=== PATIENT | male | born 1980 | race African-American/Black ===

== ENCOUNTER 2022-08-25 02:46 | Inpatient (IN) | payer SELFPAY ==
[~2022-08-25] VITALS: Ht 182.9 cm; Wt 90.8 kg
[2022-08-25 06:02] LABS: HEMOGLOBIN. 8.7 g/dL (14.0-18.0); MEAN CORPUSCULAR HEMOGLOBIN 29.7 pg (28.0-32.0); MEAN CORPUSCULAR VOLUME 89.3 fL (80.0-94.0); MEAN PLATELET VOLUME 6.9 fl (7.4-10.4); PLATELET 456 x1000/uL (130-400); RED BLOOD CELL COUNT 2.92 mill/uL (4.7-6.1); RED CELL DISTRIBUTION WIDTH 14.5 % (11.6-14.6)
[2022-08-25 06:08] LABS: CHLORIDE 98 mEq/L (98-107)
[2022-08-25 06:18] LABS: ETHANOL BLOOD < 10 mg/dL
[2022-08-25 08:04] LABS: PLATELET ESTIMATE INCREASED
[2022-08-25] MEDS: AMPICILLIN SOD/SULBACTAM NA 3 G in SODIUM CHLORIDE 0.9% 100 ML IV SCH ×2 (08:30→14:37)
[2022-08-25] MEDS ORDERED: ONDANSETRON HCL 4MG/2ML INJ IV PRN (12:45)
[2022-08-25] MEDS ORDERED: CLONIDINE 0.1MG TABLET PO PRN (12:45)
[2022-08-25] MEDS: SODIUM CHLORIDE 0.9% 1,000 ML IV SCH ×2 (12:45→23:01)
[2022-08-25] MEDS ORDERED: ACETAMINOPHEN 325MG TABLET PO PRN (12:45)
[2022-08-25] MEDS: ENOXAPARIN 40MG/0.4ML SYR SUBCUT SCH (14:43)
[2022-08-25 16:00] VITALS: BP 132/74
[2022-08-25 16:56] VITALS: BP 136/74
[2022-08-25] MEDS ORDERED: VANCOMYCIN 1,750 MG in DEXT 5% WATER 500 ML IV SCH (18:00)
[2022-08-26] VITALS: BP 138/64
[2022-08-26] MEDS: VANCOMYCIN 1250MG in DEXTROSE 5% WATER 250ML IV SCH ×3 (03:14→21:53)
[2022-08-26] MEDS: SODIUM CHLORIDE 0.9% 1,000 ML IV SCH ×2 (08:45→18:24)
[2022-08-26 11:54] LABS: *AMPHETAMINES SCREEN URINE NEGATIVE (NEGATIVE); *BARBITURATES SCREEN URINE NEGATIVE (NEGATIVE); *BENZODIAZEPINES SCREEN URINE NEGATIVE (NEGATIVE); *COCAINE SCREEN URINE NEGATIVE (NEGATIVE); CANNABINOID URINE SCREEN NEGATIVE (NEGATIVE); METHADONE URINE SCREEN NEGATIVE (NEGATIVE); OPIATES URINE SCREEN NEGATIVE (NEGATIVE); PHENCYCLIDINE URINE SCREEN NEGATIVE (NEGATIVE)
[2022-08-26] MEDS: ENOXAPARIN 40MG/0.4ML SYR SUBCUT SCH (14:12)
[2022-08-26] MEDS ORDERED: PERMETHRIN 5% CREAM 60GM TOP SCH (17:15)
[2022-08-26 20:00] VITALS: BP 138/80
[2022-08-26 23:13] LABS: CHLORIDE 100 mEq/L (98-107)
[2022-08-26 23:25] LABS: HEMATOCRIT. 26.6 % (42.0-52.0); HEMOGLOBIN. 8.3 g/dL (14.0-18.0); MEAN CORPUSCULAR HEMOGLOBIN 28.7 pg (28.0-32.0); MEAN CORPUSCULAR VOLUME 91.9 fL (80.0-94.0); PLATELET 478 x1000/uL (130-400); RED BLOOD CELL COUNT 2.89 mill/uL (4.7-6.1); RED CELL DISTRIBUTION WIDTH 14.9 % (11.6-14.6)
[2022-08-27] VITALS: BP 134/76
[2022-08-27 04:00] VITALS: BP 137/84
[2022-08-27] MEDS: SODIUM CHLORIDE 0.9% 1,000 ML IV SCH ×2 (04:22→14:45)
[2022-08-27] MEDS: VANCOMYCIN 1250MG in DEXTROSE 5% WATER 250ML IV SCH (05:35)
[2022-08-27 08:00] VITALS: BP 140/82
[2022-08-27 10:09] LABS: PLATELET ESTIMATE INCREASED
[2022-08-27 12:00] VITALS: BP 138/79
[2022-08-27] MEDS: ENOXAPARIN 40MG/0.4ML SYR SUBCUT SCH (12:56)
[2022-08-27] MEDS ORDERED: VANCOMYCIN 1.25GM PMX (XELLIA) 250 ML IV SCH (14:00)
[2022-08-27] MEDS ORDERED: LEVO-65 MT (15:23)
[2022-08-27 16:35] VITALS: BP 130/69
== END 2022-08-27 19:00 | disposition home or self-care (01) | DRG 720 ==
LOC: ER 02:54 → 6EST 09:33 → EDBEDREQ 10:04 → ENRESERV 10:08
PROVIDERS: ADMIT Internal Medicine; ATTEND Internal Medicine
DX: A41.9 Sepsis, unspecified organism (principal); E88.09 Other disorders of plasma-protein metabolism, not elsewhere classified; B86 Scabies; D64.9 Anemia, unspecified; I87.2 Venous insufficiency (chronic) (peripheral); L03.115 Cellulitis of right lower limb; L03.116 Cellulitis of left lower limb; Z59.00 Homelessness unspecified
CPT/HCPCS: 36415; 71045; 80048; 80053; 80305; 80320; 83605; 83880; 84145; 84484; 85025; 99285; C1893; J0295; J1650; J3370; J7030; J7050; J7060; G0480

== ENCOUNTER 2022-08-27 22:16 | Emergency (ER) | payer SELFPAY ==
[~2022-08-27] VITALS: Ht 180.3 cm; Wt 93.0 kg
[~2022-08-27 22:16] MED LIST: LEVO-65 MT
[2022-08-27 22:31] VITALS: BP 108/65
== END 2022-08-28 01:30 | disposition left against medical advice (07) ==
LOC: ER 22:16
DX: Z53.21 Procedure and treatment not carried out due to patient leaving prior to being seen by health care provider (principal)